=== PATIENT | female | born 2000 | race African-American/Black ===

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

== ENCOUNTER 2018-01-12 12:09 | Emergency (ER) | payer SELFPAY ==
[2018-01-12 12:14] VITALS: BP 113/68
--- NOTE | 2018-01-12 13:00 | ER Document Report ---
ED Extremity Problem, Lower - General Chief Complaint: Foot Pain Stated Complaint: INGROWN TOE NAILS Time Seen by Provider: 01/12/18 12:27 Information source: Patient Notes: Patient is 17-year-old female who presents today with bilateral ingrown toenails to the large toes. Patient states she has had this for 5 days. She has had previous infected toenails as well. She denies a history of diabetes. She denies any fevers or vomiting. TRAVEL OUTSIDE OF THE [place] IN LAST 30 DAYS: No - HPI Patient complains to provider of: Pain, Swelling Location: Great Toe Occurred: Other - See above Where: Home Onset/Duration: Gradual Quality of pain: Achy, Burning Severity: Mild Pain Level: 1 Context: Other - See above Recent injury: No Exacerbated by: Movement, Walking Relieved by: Nothing - Related Data Allergies/Adverse Reactions: acetaminophen [From Tylenol] Allergy (Verified 01/12/18 12:09) peanut Allergy (Verified 01/12/18 12:09) shellfish derived Allergy (Verified 01/12/18 12:09) Past Medical History - Social History Smoking Status: Never Smoker Cigarette use (# per day): No Chew tobacco use (# tins/day): No Frequency of alcohol use: None Drug Abuse: None Family History: Reviewed & Not Pertinent Patient has suicidal ideation: No Patient has homicidal ideation: No Renal/ Medical History: Denies: Hx Peritoneal Dialysis - Immunizations Immunizations up to date: Yes Hx Diphtheria, Pertussis, Tetanus Vaccination: Yes Physical Exam - Vital signs Vitals: Temp Pulse Resp BP Pulse Ox 98.2 F 78 18 113/68 99 01/12/18 12:13 01/12/18 12:13 01/12/18 12:13 01/12/18 12:13 01/12/18 12:13 Notes: Reviewed vital signs and nursing note as charted by RN. CONSTITUTIONAL: Alert and oriented and responds appropriately to questions. Well -appearing; well-nourished EXT: Patient has infected toenails to bilateral great toes. There is swelling and tenderness to the lateral edge of the left toe and swelling and tenderness to bilateral edges of the right great toe Course - Re-evaluation Re-evalutation: 01/12/18 13:00 Given the history and physical examination I will most likely perform bilateral digital blocks of the great toes and perform ingrown toenail removal on the left lateral nailbed of the left toe and bilateral lateral nailbeds of the right great toe. - Vital Signs Vital signs: Temp Pulse Resp BP Pulse Ox 98.2 F 78 18 113/68 99 01/12/18 12:13 01/12/18 12:13 01/12/18 12:13 01/12/18 12:13 01/12/18 12:13 Procedures - Incision and Drainage Left Toe Type: Simple Anesthetic type: 1% Lidocaine I&D procedure: Chlorprep applied Incision Method: Incision made by scalpel - See above Notes: 01/12/18 14:03 I performed bilateral digital blocks with lidocaine 1% without epinephrine of the great toes. Good anesthesia uptake. I then used scissors and forceps to remove ingrown nails to bilateral toes. One ingrown toenail to the left lateral nailbed of the left great toe. Bilateral ingrown toenails to bilateral edges of the right great toe. Minimal yellow discharge to all nailbeds when removed. I then soaked the patient in a soap solution Discharge - Discharge Clinical Impression: Ingrown left big toenail, Ingrown right big toenail Condition: Good Disposition: HOME, SELF-CARE Additional Instructions: Come back immediately for any increased pain, swelling, fever, redness, or any other acute problems. Please follow-up with your primary care physician and possibly the scrapper and take the antibiotics as prescribed. Prescriptions: Cephalexin Monohydrate [Keflex 500 mg Capsule] 500 mg PO Q6H 5 Days capsule Referrals: ABBIE COE MD [ACTIVE STAFF] - Follow up as needed
[2018-01-12] MEDS ORDERED: CEPHALEXIN 500 MG CAPSULE PO ONE (13:01)
[2018-01-12] MEDS ORDERED: LIDOCAINE 1% INJ (10 MG/ML) 10 ML MDV INJ ONE (13:08)
[2018-01-12] MEDS ORDERED: LIDOCAINE 1% INJ-PF (10 MG/ML) 30 ML SDV ONE (13:11)
== END 2018-01-12 14:56 | disposition home or self-care (01) ==
LOC: ER 12:09
DX: L60.0 Ingrowing nail (principal)
CPT/HCPCS: 99283; 11750; J3490

== ENCOUNTER 2019-06-19 14:26 | Emergency (ER) | payer OTHER ==
--- NOTE | 2019-06-19 15:10 | ER Document Report ---
ED Medical Screen (RME) - General Chief Complaint: Toe Injury Stated Complaint: TOE PAIN Time Seen by Provider: 06/19/19 15:07 TRAVEL OUTSIDE OF THE [place] IN LAST 30 DAYS: No - HPI Notes: 06/19/19 15:08 Patient is a 19-year-old female who presents complaining of swelling and drainage from both great toenails for 4 months approximately that she states are ingrown. Patient just recently got back insurance. No fever. I have treated and performed a rapid initial assessment of this patient. A comprehensive ED assessment and evaluation of the patient, analysis of test results and completion of medical decision making process will be conducted by additional ED providers. PHYSICAL EXAMINATION: GENERAL: Well-appearing, well-nourished and in no acute distress. A&Ox4. Answers questions appropriately. Great toe bilaterally: Ingrown appearing toenails bilaterally. There is swelling and discharge noted. - Related Data Allergies/Adverse Reactions: acetaminophen [From Tylenol] Allergy (Verified 01/12/18 12:09) peanut Allergy (Verified 01/12/18 12:09) shellfish derived Allergy (Verified 01/12/18 12:09) Past Medical History Renal/ Medical History: Denies: Hx Peritoneal Dialysis - Immunizations Immunizations up to date: Yes Hx Diphtheria, Pertussis, Tetanus Vaccination: Yes Physical Exam - Vital signs Vitals: Temp Pulse Resp BP Pulse Ox 98.6 F 105 H 18 115/72 100 06/19/19 14:37 06/19/19 14:37 06/19/19 14:37 06/19/19 14:37 06/19/19 14:37 Course - Vital Signs Vital signs: Temp Pulse Resp BP Pulse Ox 98.6 F 105 H 18 115/72 100 06/19/19 14:37 06/19/19 14:37 06/19/19 14:37 06/19/19 14:37 06/19/19 14:37
[2019-06-19] MEDS ORDERED: LIDOCAINE 1% INJ-PF (10 MG/ML) 30 ML SDV INJ ONE (16:27)
--- NOTE | 2019-06-19 17:01 | ER Document Report ---
Entered by MIKAELA CALLAWAY SCRIBE 06/19/19 [id number] Acting as scribe for:RED MARTINEZ MD ED Extremity Problem, Lower - General Chief Complaint: Toe Injury Stated Complaint: TOE PAIN Time Seen by Provider: 06/19/19 15:07 Mode of Arrival: Ambulatory Information source: Patient Notes: This 19 year old female patient presents to the emergency department today with complaints of bilateral ingrown toe nails. Patient reports that she has had ingrown toenails multiple times in the past. Patient reports her current ingrown toenails have been going on for "quite some time" but she has not yet been seen for them as she "just got insurance". TRAVEL OUTSIDE OF THE [place] IN LAST 30 DAYS: No - Related Data Allergies/Adverse Reactions: acetaminophen [From Tylenol] Allergy (Verified 01/12/18 12:09) peanut Allergy (Verified 01/12/18 12:09) shellfish derived Allergy (Verified 01/12/18 12:09) Past Medical History - General Information source: Patient - Social History Smoking Status: Never Smoker Cigarette use (# per day): No Chew tobacco use (# tins/day): No Smoking Education Provided: No Frequency of alcohol use: None Drug Abuse: None Lives with: Family Family History: Reviewed & Not Pertinent Patient has suicidal ideation: No Patient has homicidal ideation: No - Medical History Medical History: Negative Surgical Hx: Negative - Immunizations Immunizations up to date: Yes Hx Diphtheria, Pertussis, Tetanus Vaccination: Yes Review of Systems - Review of Systems Constitutional: No symptoms reported EENT: No symptoms reported Cardiovascular: No symptoms reported Respiratory: No symptoms reported Gastrointestinal: No symptoms reported Genitourinary: No symptoms reported Female Genitourinary: No symptoms reported Musculoskeletal: Joint pain Skin: See HPI, Other - ingrown toe nails on bilateral great toes Hematologic/Lymphatic: No symptoms reported Neurological/Psychological: No symptoms reported -: Yes All other systems reviewed and negative Physical Exam - Vital signs Vitals: Temp Pulse Resp BP Pulse Ox 98.6 F 105 H 18 115/72 100 06/19/19 14:37 06/19/19 14:37 06/19/19 14:37 06/19/19 14:37 06/19/19 14:37 - General General appearance: Appears well, Alert In distress: None - HEENT Head: Normocephalic, Atraumatic Eyes: Normal Conjunctiva: Normal - Respiratory Respiratory status: No respiratory distress - Abdominal Inspection: Normal Distension: No distension - Extremities General upper extremity: Normal inspection, Nontender. No: Edema General lower extremity: Normal inspection, Nontender. No: Edema - Neurological Neuro grossly intact: Yes Cognition: Normal Orientation: AAOx4 - Psychological Associated symptoms: Normal affect, Normal mood - Skin Notes: Bilateral great toenails are ingrown. Right great toe has hypertrophic skin that is erythematous and swollen. Left great toenail is ingrown laterally. Nails on all toes are cut far back and patient was educated on letting them grow out to prevent future ingrown nails. Course - Re-evaluation Re-evalutation: 06/19/19 20:59 PROCEDURE: BILATERAL INGROWN TOENAILS--TOENAIL REMOVAL The skin over both distal feet and toes was prepped with Shur-Clens. The first toes were each anesthetized with 1% lidocaine via a metatarsal block. A total of 8 mL's was used on the right first toe, and 7 mL was used on the left first toe. After adequate anesthesia, each toenail was from the nailbed using a mosquito forceps and blunt dissection. The toenails were easily removed. The hypertrophied friable tissue on either side of each nail bed was slightly debrided. The nail beds were irrigated with normal saline using 10 mL's on each side. The nailbeds were covered with Xeroform gauze, which was tucked in to the proximal, medial and lateral potential spaces. Sterile gauze dressings were then applied placed on each toe. - Vital Signs Vital signs: Temp Pulse Resp BP Pulse Ox 98.6 F 95 14 107/80 99 06/19/19 18:16 06/19/19 18:16 06/19/19 18:16 06/19/19 18:16 06/19/19 18:16 Discharge - Discharge Clinical Impression: Ingrown toenail of both feet Condition: Stable Disposition: HOME, SELF-CARE Additional Instructions: Ingrown Nail You have an ingrown nail. An ingrown nail develops when the tissues near the nail are pushed up over the nail. Irritation develops and infection follows. An ingrown nail can result from poorly fitting shoes, improper cutting of the nail, or minor injuries. Once the tissues at the edge of the nail swell, the problem can become chronic. Emergency treatment is usually removal of the portion of the nail that has become ingrown. This is followed by hot soaks three to four times a day. Antibiotics may be necessary if infection is present. After the toe heals, make certain there is no pressure on the area, either from shoes or another toe. Trim the toenails straight across, not curved back into the corners. If ingrown nails recur, an operation to remove excess tissue near the nail, or narrowing of the nail, may be necessary. Call the doctor or return if swelling increases, or red streaks, swelling, or swollen glands are found. Elevate your feet for the next few days. Limit walking. Keep the dressings clean, and intact. Take ibuprofen 400 mg every 8 hours. Take the medications as prescribed. Follow-up with a interactive media specialist as you have planned. RETURN TO THE EMERGENCY ROOM IF ANY NEW OR WORSENING SYMPTOMS. Prescriptions: Cephalexin Monohydrate [Keflex 500 mg Capsule] 500 mg PO QID #20 capsule Oxycodone HCl [Oxy-Ir 5 mg Tablet] 2.5 mg PO ASDIR PRN #8 tab PRN Reason: Forms: Return to Work Scribe Attestation: 06/19/19 17:49 I personally performed the services described in the documentation, reviewed and edited the documentation which was dictated to the scribe in my presence, and it accurately records my words and actions. I personally performed the services described in the documentation, reviewed and edited the documentation which was dictated to the scribe in my presence, and it accurately records my words and actions.
[2019-06-19 18:22] VITALS: BP 107/80
== END 2019-06-19 18:16 | disposition home or self-care (01) ==
LOC: ER 14:26
DX: L60.0 Ingrowing nail (principal); Z88.8 Allergy status to other drugs, medicaments and biological substances; Z91.010 Allergy to peanuts; Z91.013 Allergy to seafood
CPT/HCPCS: 99283

== ENCOUNTER 2019-08-04 11:28 | Emergency (ER) | payer OTHER ==
[2019-08-04] MEDS ORDERED: DIPH/PERTUSS(ACELL)/TETANUS VAC/PF 0.5 ML SYR (>=10YO) IM ONE (12:17)
--- NOTE | 2019-08-04 12:20 | ER Document Report ---
ED Hand/Wrist Injury - General Chief Complaint: Laceration Stated Complaint: FINGER LACERATION Time Seen by Provider: 08/04/19 12:14 Notes: CHIEF COMPLAINT: Laceration left fourth finger HPI: 19-year-old female presenting to the emergency department for evaluation of a laceration to the tip of the left fourth finger today. Patient is in culinary school. Patient was cutting vegetables when she slipped and cut the tip of the finger. States she is not up-to-date on her tetanus vaccination. Denies other injuries or complaints ROS: See HPI - all other systems were reviewed and are otherwise negative Constitutional: no fever Integumentary: no rash, + laceration Allergy: no hives Musculoskeletal: no extremity pain or swelling Neurological: no numbness/tingling, no weakness MEDICATIONS: I agree with the patient medications as charted by the RN. ALLERGIES: I agree with the allergies as charted by the RN. PAST MEDICAL HISTORY/PAST SURGICAL HISTORY: Reviewed and agree as charted by RN. SOCIAL HISTORY: Reviewed and agree as charted by RN. FAMILY HISTORY: No significant familial comorbid conditions directly related to patient complaint EXAM: Reviewed vital signs as charted by RN. CONSTITUTIONAL: Alert and oriented and responds appropriately to questions. Well-appearing; well-nourished HEAD: Normocephalic; atraumatic EYES: PERRL; Conjunctivae clear, sclerae non-icteric ENT: normal nose; no rhinorrhea; moist mucous membranes; pharynx without lesions noted, no uvula edema or deviation, no tonsillar hypertrophy, phonation normal NECK: Supple without meningismus; non-tender; no cervical lymphadenopathy, no masses CARD: symmetric distal pulses RESP: Normal chest excursion without splinting or tachypnea ABD/GI: non-distended. BACK: The back appears normal EXT: Normal ROM in all joints; no cyanosis, no effusions, no edema SKIN: Normal color for age and race; warm; dry; good turgor; there is an abrasion superficial laceration on the dorsal aspect of the left fourth finger. Patient has avulsed the distal aspect of the one third of the nail as well as a very small amount of tissue from the distal fingertip. Nailbed appears intact. Capillary refill less than 3 seconds in the distal tip of the finger with intact sensation to touch NEURO: Moves all extremities equally; Motor and sensory function intact PSYCH: The patient's mood and manner are appropriate. Grooming and personal hygiene are appropriate. MDM: 19-year-old female who appears to have superficially scalped off a distal portion of the fingernail and tip of the finger. Very small amount of avulsed tissue. No indication for imaging or sutures at this time. We will dress the wound update tetanus status follow-up PCP TRAVEL OUTSIDE OF THE [place] IN LAST 30 DAYS: No - Related Data Allergies/Adverse Reactions: acetaminophen [From Tylenol] Allergy (Verified 01/12/18 12:09) peanut Allergy (Verified 01/12/18 12:09) shellfish derived Allergy (Verified 01/12/18 12:09) Past Medical History - Social History Smoking Status: Never Smoker Frequency of alcohol use: Occasional Drug Abuse: None Family History: Reviewed & Not Pertinent Patient has suicidal ideation: No Patient has homicidal ideation: No Renal/ Medical History: Denies: Hx Peritoneal Dialysis - Immunizations Immunizations up to date: Yes Hx Diphtheria, Pertussis, Tetanus Vaccination: Yes Physical Exam - Vital signs Vitals: Temp Pulse Resp BP Pulse Ox 97.8 F 104 H 18 112/63 98 08/04/19 11:39 08/04/19 11:39 08/04/19 11:39 08/04/19 11:39 08/04/19 11:39 Course - Vital Signs Vital signs: Temp Pulse Resp BP Pulse Ox 97.8 F 104 H 18 112/63 98 08/04/19 11:39 08/04/19 11:39 08/04/19 11:39 08/04/19 11:39 08/04/19 11:39 Discharge - Discharge Clinical Impression: Laceration of finger, left Qualifiers: Encounter type: initial encounter Finger: ring finger Damage to nail status: with damage Foreign body presence: without foreign body Qualified Code(s): S61.315A - Laceration without foreign body of left ring finger with damage to nail, initial encounter Condition: Stable Disposition: HOME, SELF-CARE Additional Instructions: Clean the wound area gently with soap and water twice daily applying a small amount of antibiotic ointment and a dressing until healed. Motrin or Tylenol consistently for pain. Follow-up with primary care provider in 2 to 3 days for wound check. Referrals: OMARI LOGAN MD [ACTIVE STAFF] - Follow up as needed
[2019-08-04 12:49] VITALS: BP 114/68
== END 2019-08-04 12:54 | disposition home or self-care (01) ==
LOC: ER 11:28
DX: S61.315A Laceration without foreign body of left ring finger with damage to nail, initial encounter (principal); W26.0XXA Contact with knife, initial encounter; Y93.G1 Activity, food preparation and clean up
CPT/HCPCS: 90471; 90715; 99282

== ENCOUNTER → 2020-03-11 | Outpatient (CLI) | payer OTHER ==
--- NOTE | 2020-03-11 13:09 | RADIOLOGY REPORT (SQ) ---
EXAM DESCRIPTION: HIPS BILATERAL IMAGES COMPLETED DATE/TIME: 03/11/2020 12:02 pm REASON FOR STUDY: BILATERAL HIP PAIN M25.551 PAIN IN RIGHT HIP M25.552 PAIN IN LEFT HIP COMPARISON: None. NUMBER OF VIEWS: Two views TECHNIQUE: AP pelvis and additional frog-leg view of both hips. LIMITATIONS: None. FINDINGS: MINERALIZATION: Normal. HIPS: No acute fracture or dislocation. No worrisome bone lesions. PELVIS AND SACRUM: No acute fracture or dislocation. No worrisome bone lesions. PUBIS AND ISCHIUM: No acute fracture. LOWER LUMBAR SPINE: No significant findings as visualized. SOFT TISSUES: No findings. OTHER: No other significant finding. IMPRESSION: NEGATIVE STUDY OF THE PELVIS AND HIPS. TECHNICAL DOCUMENTATION: JOB ID: [id number] All Rights Reserved Reading location - IP/workstation name: [email or web address]
== END ==
LOC: OD 11:25
PROVIDERS: ATTEND Nurse Practitioner Family
DX: M25.551 Pain in right hip (principal); M25.552 Pain in left hip
CPT/HCPCS: 73522